=== PATIENT | male | born 1995 | race African-American/Black ===

== ENCOUNTER → 2016-09-20 | Outpatient (CLI) | payer OTHER ==
[~2016-09-20] MED LIST: OXYC-57 PO
--- NOTE | 2016-09-20 09:29 | DIAGNOSTIC IMAGING REPORT ---
LEFT KNEE 4 OR MORE CLINICAL HISTORY: LEFT KNEE PAIN COMPARISON: 04/04/2016 DISCUSSION: No acute fractures or dislocations are visualized. There is fragmentation of the anterior tibial tuberosity similar to the prior study. There is mild fragmentation of the posterior aspect of the proximal tibia. This is likely chronic although was not visualized the prior study. IMPRESSION: Chronic change. No acute fractures. Electronically signed by: Navid Son M.D. 09/20/2016 9:28 AM Dictated Date/Time: 09/20/2016 9:26 AM
== END | disposition home or self-care (01) ==
LOC: C.RDSM 11:59
PROVIDERS: ATTEND Family Medicine
DX: M25.562 Pain in left knee (principal); M89.9 Disorder of bone, unspecified

== ENCOUNTER → 2016-09-27 | Outpatient (CLI) | payer OTHER ==
--- NOTE | 2016-09-27 08:24 | DIAGNOSTIC IMAGING REPORT ---
MRI OF THE LEFT KNEE WITHOUT CONTRAST CLINICAL HISTORY: Left hamstring injury. Continued left knee pain despite conservative management. COMPARISON STUDY: Left knee MRI March 08, 2016 and left knee radiograph September 20, 2016. TECHNIQUE: Utilizing a 1.5 Kristina magnet and dedicated coil, multiplanar, multiecho imaging of the left knee was performed without intravenous or intraarticular contrast. FINDINGS: Alignment of the left knee is anatomic. There is a trace left knee joint effusion. There is edema surrounding the tendon for the vastus lateralis. This is not imaged in its entirety. There is no definite tear of the tendon. The cruciate and collateral ligaments are intact. The lateral meniscus is intact. There is indistinctness of the posterior root of the medial meniscus which favors a tear. No significant cartilage abnormality is identified. Of note, there is indistinctness and increased signal within visualized portions of the semimembranosus which represents a tear. There is adjacent edema. Visualized portions of the medial and lateral heads of the gastrocnemius appear unremarkable. IMPRESSION: 1. Tendinopathy with findings suggestive of a high-grade tear of the semimembranosus at the level of the knee joint. 2. Suspected tear of the posterior root of the medial meniscus. 3. Edema adjacent to the tendon of the vastus lateralis. These findings are partially imaged on this exam. Visualized portions of the tendon appear intact. Electronically signed by: Rajan Acuna M.D. 09/27/2016 8:22 AM Dictated Date/Time: 09/27/2016 8:07 AM
== END | disposition home or self-care (01) ==
LOC: C.MRIBC 07:00
PROVIDERS: ATTEND Family Medicine Sports Medicine
DX: S76.302A Unspecified injury of muscle, fascia and tendon of the posterior muscle group at thigh level, left thigh, initial encounter (principal); X58.XXXA Exposure to other specified factors, initial encounter; M76.52 Patellar tendinitis, left knee; R60.0 Localized edema

== ENCOUNTER → 2017-03-28 | Outpatient (CLI) | payer OTHER ==
--- NOTE | 2017-04-03 12:47 | DIAGNOSTIC IMAGING REPORT ---
L KNEE 4 OR MORE CLINICAL HISTORY: 21 years-old Male presenting with LEFT KNEE INJURY/EFFUSION. TECHNIQUE: Frontal, lateral, tunnel, and sunrise views of the left knee were obtained. COMPARISON: 09/20/2016. FINDINGS: No acute fracture or malalignment. Previous seen noted osseous fragmentation of the anterior tibial tuberosity unchanged, possibly indicating prior chronic injury. Small knee joint effusion may be present. No advanced degenerative change. No patellar subluxation. IMPRESSION: 1. No acute osseous injury of the left knee. 2. Small knee joint effusion suspected. Electronically signed by: Dash Alvarenga M.D. 04/03/2017 12:45 PM Dictated Date/Time: 04/03/2017 12:44 PM
== END | disposition home or self-care (01) ==
LOC: C.RDSM 16:00
PROVIDERS: ATTEND Family Medicine
DX: S89.92XA Unspecified injury of left lower leg, initial encounter (principal); X58.XXXA Exposure to other specified factors, initial encounter

== ENCOUNTER → 2017-04-06 | Outpatient (CLI) | payer OTHER ==
--- NOTE | 2017-04-06 17:55 | DIAGNOSTIC IMAGING REPORT ---
LEFT KNEE MRI HISTORY: Left knee pain. COMPARISON STUDY: Left knee MRI 09/27/2016. TECHNIQUE: Multiplanar multisequence MRI of the left knee was performed according to standard department protocol without the use of contrast. FINDINGS: Menisci: There is again noted indistinctness at the posterior root of the medial meniscus. This is partially obscured by the motion artifact but could represent a small tear. This also focus of abnormal signal within the body of the medial meniscus which may extend to the undersurface of the meniscus. This may represent a tiny oblique tear. The lateral meniscus remains intact. Ligaments: There is a full-thickness ACL tear. The PCL and MCL are intact. Edema surrounding the intact LCL consistent with a grade I injury (sprain). Extensor mechanism: The quadriceps tendon and patellar ligament are intact. Articular cartilage and bone: Small bone contusions along the lateral femoral condyle and lateral tibial plateau toe. There is also small bone contusion posteriorly within the medial tibial plateau. No fractures identified. Cartilage spaces are maintained for age. Joint effusion: Small to moderate Soft tissues: Persistent thickening of the semimembranosus tendon without significant surrounding edema. This suggests a chronic tendinopathy. IMPRESSION: 1. Full-thickness ACL tear. 2. Grade I LCL injury (sprain). 3. Small bone contusions as described above. 4. Small to moderate effusion. 5. 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 6. Indistinctness at the posterior root of the medial meniscus which may represent a small tear. There is also suggestion of a tiny oblique tear at the body of the medial meniscus. These remain unchanged. Electronically signed by: Romario Alegre M.D. 04/06/2017 5:53 PM Dictated Date/Time: 04/06/2017 5:43 PM
== END | disposition home or self-care (01) ==
LOC: C.MRIBC 16:27
PROVIDERS: ATTEND Family Medicine
DX: S83.512A Sprain of anterior cruciate ligament of left knee, initial encounter (principal); S83.422A Sprain of lateral collateral ligament of left knee, initial encounter; X58.XXXA Exposure to other specified factors, initial encounter

== ENCOUNTER → 2017-05-26 | Day surgery (SDC) | payer OTHER ==
[2017-05-01 11:33] VITALS: Ht 182.9 cm; Wt 106.8 kg
[~2017-05-26] VITALS: Ht 182.9 cm; Wt 106.8 kg
[~2017-05-26] MED LIST changes: +ATROPINE SULFATE 0.1 MG/ML 5ML SYR IV PRN; +BUPIVACAINE 0.5 % 5 MG/1 ML PF 10ML VIAL ONE; +CEFAZOLIN 2000MG IV PUSH 10 ML IV SCH; +DEXAMETHASONE SOD INJ 4 MG/ML VIAL ONE; +EpHEDrine SULFATE INJ 50 MG/ML AMP IV PRN; +EpINEphrine HCL INJ 1 MG/ML 5ML SYRINGE ONE; +FENTANYL CITRATE INJ 50 MCG/1 ML 2 ML VIAL IV PRN; +FENTANYL CITRATE INJ 50 MCG/1 ML 2 ML VIAL ONE; +HYDROmorphone INJ 1 MG/ML SYR ONE; +LACTATED RINGER'S 1000ML 1,000 ML IV SCH; +LIDOCAINE HCL 2% 2 ML VIAL (20MG/ML) ONE; +LIDOCAINE/EPINEPHRINE 1% 20 ML VIAL ONE; +MIDAZOLAM HCL 1 MG/ML 2ML VIAL ONE; +MoRPHine SULFATE 2 MG/ML CARP IV PRN; +MoRPHine SULFATE 4 MG/ML 1 ML CARP\\VIAL IV PRN; +ONDANSETRON INJ 2 MG/ML 2 ML VIAL IV PRN; +ONDANSETRON INJ 2 MG/ML 2 ML VIAL ONE; -OXYC-57 PO; +OXYCODONE/ACETAMINOPHEN 5-325 TAB PO PRN; +PROPOFOL IV EMULSION 10 MG/ML 20 ML VIAL IV ONE; +ROPIVACAINE 0.5% 5 MG/ML 30 ML VIAL ONE
--- NOTE | 2017-05-26 09:32 | History & Physical Bridge - SC ---
H&P Re-Evaluation Bridge Note: I have examined the patient, reviewed the History & Physical and in the interval since the performance of the History & Physical I have noted the following changes of clinical significance: No changes noted
--- NOTE | 2017-05-26 13:22 | Discharge Instructions-SurgCtr ---
Discharge Instructions Date of Service May 26, 2017. Visit Reason for Visit: Left Knee Acl Tear Discharge Discharge Diagnosis / Problem: Status post Left ACL reconstruction, partial Lateral menisecetomy Discharge Goals Goal(s): Decrease discomfort, Improve function, Increase independence Activity Recommendations Activity Limitations: per Instructions/Follow-up section May Resume Sexual Activity: when tolerated Shower/Bathe: may shower/bathe in 3 days Driving or Machine Use: Not while on Narcotics or in brace Weightbearing Status: Left non-weightbearing (for 24 hrs, then as tolerated with brace locked in extension.) Anesthesia . Post Anesthesia Instructions: If you have had General Anesthesia or IV Sedation: * Do not drive today. * Resume driving when surgeon permits. * Do not make important decisions or sign legal documents today. * Call surgeon for: 1. Temperature elevations greater than 101 degrees F. 2. Uncontrollable pain. 3. Excessive bleeding. 4. Persistent nausea and vomiting. 5. Medication intolerance (nausea, vomiting or rash). * For nausea and vomiting use only clear liquids such as: tea, soda, bouillon until nausea subsides, then gradually increase diet as tolerated. * If you have any concerns or questions, call your surgeon's office. If physician is unavailable and it is an emergency, call 911 or go to the nearest emergency room. . Instructions / Follow-Up Instructions / Follow-Up Dr. Alvarado in 10-15 days. ATC within 2-3 days. Diet Recommendations Home Diet: resume previous diet Procedures Procedures Performed: Left Knee Arthroscopic Anterior Cruciate Ligament Reconstruction With Hamstring Autograft, Partial Lateral Meniscectomy, Exam Under Anesthesia Pending Studies Studies pending at discharge: no School Instructions Return To School: time frame (Within 1 week) Medical Emergencies . Who to Call and When: Medical Emergencies: If at any time you feel your situation is an emergency, please call 911 immediately. . Non-Emergent Contact Non-Emergency issues call your: Surgeon Call Non-Emergent contact if: temperature is above 101.5, your pain is not controlled, wound has increased drainage, wound has increased redness . . "Provider Documentation" section prepared by Rosalino Alvarado. .
--- NOTE | 2017-05-26 13:25 | [facility] Operative Report ---
Operative Report Operative Date May 26, 2017. Pre-Operative Diagnosis Left Knee Anterior Cruciate Ligament Tear Post-Operative Diagnosis Same and left lateral meniscus tear Procedure(s) Performed 1) Left Knee Arthroscopic Anterior Cruciate Ligament Reconstruction With Hamstring Autograft. 2) Partial Lateral Meniscectomy. 3) Exam Under Anesthesia. Surgeon Dr. Arlene Alvarado Tape Recorder Repairer Surgeon(s) Dr. Rowdy Villagomez Estimated Blood Loss 12ml Findings Examination Under Anesthesia: Range of motion was 0-115 degrees. Ligamentous examination exhibited: Trudi testing with 6 mm of anterior translation and soft endpoint, and a + pivot-shift. Stable: posterior drawer, varus and valgus stress testing at zero and 30. ARTHROSCOPIC FINDINGS: 1) PATELLOFEMORAL JOINT: There tubular College of the patella and trochlea were intact. 2) GUTTERS: There were no loose bodies. 3) MEDIAL COMPARTMENT: The articular cartilage of the femur and tibia were intact. The medial meniscus was intact 4) ACL/PCL: There was an obvious tear of the ACL in the mid substance. The PCL was intact. 5) LATERAL COMPARTMENT: The lateral compartment was then entered in a figure-of- four position. The femoral/tibial cartilage was normal. The lateral meniscus had a bucket-handle tear in the white white zone as well as degenerative horizontal cleavage tear posteriorly. Fluids (cc crystalloids) 1600 Specimens None Drains n/a Anesthesia LMA + Adductor Canal Block Complication(s) None Disposition Recovery Room / PACU (Stable) Implants 1. Femoral Fixation with ACL Tightrope RT (Arthrex). 2. Tibial Fixation with ABS Tightrope with ABS button (Arthrex). Indications This is a 22-year-old male who tore their Left ACL playing rugby for [facility]. I recommended that their left knee anterior cruciate ligament reconstruction be performed to allow the patient to return to cutting/pivoting activities. The patient understands the rehabilitation process as well as the risks of surgery, which include bleeding, infection, re-operation, damage to nerves and arteries, continued knee pain, or regression of arthritis, arthrofibrosis (knee stiffness), failure of the graft, failure of the hardware, and the potential that the patient may not return to their previous level of activity, and deep vein thrombosis. The patient understands all of these instructions and explanations, all of their questions have been satisfactorily addressed and the patient has elected to proceed. Informed consent was signed. Description of Procedure The patient was taken to the Operating Room and placed in the supine position after Adductor nerve block and general anesthetic was administered. The surgeon initials and a multidisciplinary time-out were used to identify the left leg as the correct operative limb. Prior to the incision, 2 grams of intravenous Ancef were given. The left leg was then prepped and draped in a standard sterile fashion. The anterolateral, anteromedial, and superolateral portals were injected with the 50:50 mixture of 1% Lidocaine plain and 0.5% Bupivacaine with epinephrine, for a total of 10cc, in the standard fashion. An anterolateral arthroscopic portal was established with 11-blade. Next, the arthroscope was introduced into the knee. The anteromedial portal was established under direct visualization using a spinal needle followed by an 11 blade in the standard fashion. The above findings were observed during the diagnostic arthroscopy. Graft [place]: The oblique planed incision was injected with 6 cc of the above noted 50:50 mixture. With the knee bent 40-50 degrees a #10-blade was used to make sharp dissection approximately 5 cm. Blunt dissection was used to identify the Sartorious fascia. This was incised along its superior border and T distally. The Gracilis and Semitendinosus were identified and tagged. All adhesions were bluntly and sharply dissected off the tendons. The tendons were sharply dissected off the bone distally and a Krackow stitch was placed with a #2 FiberWire. The tendons were delivered into the wound and the remaining adhesions were removed. A closed end graft harvester was used to then harvest the tendons in the standard fashion. The graft was placed on the back table for preparation. All excess muscle was removed. The ends of the tendons were whipped stitched with 3-0 Vicryl and passed through the ABS and RT Tightropes, where the ends were then secured with a FiberLoop. 0 FiberWire was used to shahriar the 15 mm from either end of the tight ropes and the knot docked in the standard fashion. It was quadrupled over and found to fit an 8 mm sizer for the femoral side and a 8.5 mm sizer on the tibial side. The graft length was 65 mm. The graft was tensioned on the back table and 15 PSI and covered with a moist sponge until later use. After completing the diagnostic arthroscopy, the lateral meniscus tear was debrided back to a stable margin with hand punches and a mechanical shaver. The left knee was then flexed to 90 degrees and a bump was placed underneath the posterior thigh. With the knee flexed in a 90-degree position, my attention was then focused on excising the remnants of the anterior cruciate ligament with a 5.0 mm shaver and [place]. A small notchplasty was performed to visualize the back wall. The Tibial drill guide was then brought into the knee and set on 60 degrees. A 8.5 mm Flipcutter was then introduced from the anteromedial tibia into the intra -articular position in the center of the ACL footprint even with the anterior horn of lateral meniscus and 8 mm anterior to the PCL. The tunnel was created and breached the cortex. A Tigerstick was introduced through the tibial tunnel and retrieved through the anteromedial portal. The arthroscope was switch to the anteromedial portal and the Flipcutter aiming guide was placed at the 10 Oclock position with 7 mm from the over the top position, with 105 degrees. The lateral aspect of the femur was marked and a small 1.5 cm incision was made to place the aiming guide down to bone. Then the 8 mm Flipcutter was introduced into the knee through the lateral femoral condyle for proper femoral tunnel placement. The Flipcutter was flipped and the tunnel was reamed for a total tunnel length of 35 mm. There was 1 mm thick back wall. A Fiberstick suture was then used and shuttled in through the femoral tunnel and then out the anteromedial portal, along with the Tigerstick to pass the graft, insuring that there was no soft tissue bridge. The graft was then introduced intra-articularly through the anteromedial portal. The graft was then seated in an anatomic position along the femur. Fixation was accomplished on the femoral side with an ACL Tightrope RT. The graft was then introduced into the tibial tunnel and the larger ABS button was placed. Next, the graft was taken into full extension. There was no impingement. The graft entered the knee approximately 1 mm at 10 degrees of flexion. The arthroscopic instruments were then removed. The graft was then cycled and fixed to the knee in 0 degrees flexion with ABS Tightrope and button on the tibial side in the standard fashion. Trudi and pivot shift were then tested and were negative. The knee had full range of motion. The wounds were then copiously irrigated. The Sartorius fascia was closed with 0 Vicryl in a running fashion. The deep adipose tissue had a single 2-0 Vicryl suture placed after copious irrigation. The subcutaneous tissue and IT band were closed with 3-0 Vicryl. The subcutaneous tissue was closed with 3-0 Vicryl. The skin was closed with a 4-0 Monocryl in a standard running fashion and Dermabond. Once the Dermabond had dried, Steri-Strips were placed over top. The wounds were dressed sterile gauze, ABDs, sterile Webril, and a foot to thigh Dragan bandage. An Iceman device and T-ROM hinged knee brace were applied. The patient was then transferred to the Recovery Room in stable condition. Post-op Instructions: The patient will be weight bearing as tolerated with his brace locked in extension for the next 2 weeks. The patient may remove the operative dressing on Post-Op Day #2 and apply Band-Aids to the portal wounds and cover their anterior incision with gauze as needed. The patient may shower in 72 hours and is to wear the ERICK for 2 weeks on their operative limb. The patient is to use the pain medicine as needed and take the ASA for 3 weeks. The patient is to start PT post-operative day 2. The patient was also given a handout for home quad strengthening and seated self-assisted ROM exercises, which they may begin tomorrow. The patient is to follow up with me in 10-15 days. I attest to the content of the Intraoperative Record and any orders documented therein. Any exceptions are noted below.
[2017-05-26 14:34] VITALS: TEMP 37
--- NOTE | 2017-05-26 14:37 | Anesthesia Progress Nt - [facility] ---
Anesthesia Post Op Note Date & Time May 26, 2017 at 14:36 Vital Signs Pain Intensity: 4 Vital Signs Past 12 Hours Date Time Temp Pulse Resp B/P (MAP) Pulse Ox O2 Delivery O2 Flow Rate FiO2 05/26/17 14:31 151/91 05/26/17 14:27 89 18 99 05/26/17 14:27 89 18 05/26/17 14:27 37.1 99 Room Air 05/26/17 14:26 88 19 134/82 99 05/26/17 14:26 88 19 05/26/17 14:21 92 17 145/81 98 05/26/17 14:21 92 17 05/26/17 14:16 91 14 141/73 100 05/26/17 14:16 90 14 05/26/17 14:15 94 16 05/26/17 14:15 94 16 100 05/26/17 14:11 138/76 05/26/17 14:10 93 16 05/26/17 14:10 91 16 100 05/26/17 14:06 141/82 05/26/17 14:05 93 16 05/26/17 14:05 92 16 100 05/26/17 14:01 138/75 05/26/17 14:00 37.5 87 16 142/79 100 Mask 9 05/26/17 14:00 91 16 05/26/17 14:00 91 16 100 05/26/17 13:57 142/79 05/26/17 10:05 71 13 100 05/26/17 10:05 72 05/26/17 10:04 69 23 100 05/26/17 10:04 69 05/26/17 10:03 61 05/26/17 10:03 63 7 99 05/26/17 10:02 72 10 99 05/26/17 10:02 66 05/26/17 10:01 116/60 05/26/17 09:59 60 05/26/17 09:59 61 11 100 05/26/17 09:58 67 47 100 05/26/17 09:58 65 05/26/17 09:57 61 05/26/17 09:57 62 13 100 05/26/17 09:56 125/73 05/26/17 09:53 67 31 100 05/26/17 09:53 65 05/26/17 09:52 62 05/26/17 09:52 61 16 100 05/26/17 09:51 64 20 121/67 100 05/26/17 09:51 64 05/26/17 09:46 72 05/26/17 09:46 71 20 100 05/26/17 09:45 140/65 05/26/17 09:44 72 0 99 05/26/17 09:44 72 05/26/17 09:39 77 0 05/26/17 09:34 0 05/26/17 09:29 0 05/26/17 09:13 119/67 05/26/17 09:09 36.9 69 22 119/67 (84) 100 Room Air Notes Mental Status: alert / awake / arousable, participated in evaluation Pt Amnestic to Procedure: Yes Nausea / Vomiting: adequately controlled Pain: adequately controlled Airway Patency, RR, SpO2: stable & adequate BP & HR: stable & adequate Hydration State: stable & adequate Anesthetic Complications: no major complications apparent
[2017-05-26 15:54] VITALS: BP 127/84; PULSE 85; O2SAT 100
== END | disposition home or self-care (01) ==
LOC: X.SURG 09:00
PROVIDERS: ATTEND Orthopaedic Surgery Sports Medicine
DX: S83.252A Bucket-handle tear of lateral meniscus, current injury, left knee, initial encounter (principal); S83.512A Sprain of anterior cruciate ligament of left knee, initial encounter; X50.0XXA Overexertion from strenuous movement or load, initial encounter; Y93.63 Activity, rugby; Y92.328 Other athletic field as the place of occurrence of the external cause; Y99.8 Other external cause status